=== PATIENT | female | born 1990 | race Caucasian/White ===

== ENCOUNTER 2017-11-22 06:48 | Inpatient (IN) | payer OTHER ==
[2017-11-22] MEDS ORDERED: CARBOPROST 250 MCG INJ IM (12:30)
[2017-11-22] MEDS ORDERED: OXYTOCIN 30 UNITS/LR 500 ML IV (12:30)
[2017-11-22] MEDS ORDERED: METHYLERGONOVINE 0.2 MG INJ IM (12:30)
[2017-11-22] MEDS ORDERED: IBUPROFEN 600 MG TAB PO (12:30)
[2017-11-22] MEDS ORDERED: LIDOCAINE 1% (MPF) 30 ML INJ INJ (12:30)
[2017-11-22] MEDS ORDERED: MISOPROSTOL 200 MCG TAB PR (12:30)
[2017-11-22] MEDS: BUTORPHANOL 2 MG INJ IV (12:59)
[2017-11-22 14:08] LABS: ADD MAN DIFF? NO
[2017-11-22 14:11] LABS: WHITE BLOOD COUNT 11.4 10^3/ul (4.8-10.8)
[2017-11-22 14:11] LABS: BASOPHILS % 0.4 % (0.0-2.0); EOSINOPHILS % 0.4 % (0.0-7.0); HEMATOCRIT 34.7 % (37.0-47.0); HEMOGLOBIN 11.8 g/dl (12.0-16.0); LYMPHOCYTES # 1.8 10^3/ul (0.8-2.9); LYMPHOCYTES % 15.7 % (15.0-51.0); MEAN CORPUSCULAR HEMOGLOBIN 30.4 pg (29.0-33.0); MEAN CORPUSCULAR VOLUME 89.4 fl (82.0-101.0); MEAN PLATELET VOLUME 11.9 fl (7.4-10.4); MONOCYTE # 0.8 10^3/ul (0.3-0.9); MONOCYTES % 6.8 % (0.0-11.0); NEUTROPHIL # 8.7 10^3/ul (1.6-7.5); PLATELET COUNT 166 10^3/UL (140-415); RED BLOOD COUNT 3.88 10^6/ul (4.20-5.40); RED CELL DISTRIBUTION WIDTH 12.5 % (11.5-14.5)
[2017-11-22 14:46] LABS: INR 0.92; PROTIME 12.4 Sec (11.9-14.9)
[2017-11-22] MEDS: LACTATED RINGER'S 1,000 ML IV ×2 (15:28→19:53)
[2017-11-22] MEDS ORDERED: FENTAnyl 2MCG/ML-ROPIV 0.2% 100 ML (15:31)
[2017-11-22 16:47] LABS: RAPID PLASMA REAGIN NONREACTIVE (NR)
[2017-11-22 16:57] LABS: AMPHETAMINE/METHAMPHETAMINE Negative (NEGATIVE); BARBITURATES Negative (NEGATIVE); BENZODIAZEPINES Negative (NEGATIVE); CANNABINOIDS Negative (NEGATIVE); COCAINE Negative (NEGATIVE); OPIATES Negative (NEGATIVE)
[2017-11-22] MEDS: ONDANSETRON 4 MG INJ IV ×2 (17:13→23:24)
[2017-11-22] MEDS ORDERED: NALOXONE (0.4 MG/ML) INJ IV (17:30)
[2017-11-22] MEDS ORDERED: DIPHENHYDRAMINE 50 MG INJ IV (17:30)
[2017-11-22] MEDS: OXYTOCIN 30 UNITS/LR 500 ML IV (20:11)
[2017-11-22] MEDS: FENTAnyl 2MCG/ML-ROPIV 0.2% 100 ML BAG EPI (21:32)
[2017-11-23] MEDS: LACTATED RINGER'S 1,000 ML IV ×2 (01:30→02:35)
[2017-11-23] MEDS: FENTAnyl 2MCG/ML-ROPIV 0.2% 100 ML BAG EPI (04:16)
[2017-11-23] MEDS: OXYTOCIN 30 UNITS/LR 500 ML IV ×3 (06:18→07:16)
[2017-11-23] MEDS ORDERED: LACTATED RINGER'S 500 ML (07:16)
[2017-11-23] MEDS ORDERED: OXYTOCIN 30 UNITS/LR 500 ML IV (07:30)
[2017-11-23] MEDS ORDERED: MISOPROSTOL 200 MCG TAB PR (07:30)
[2017-11-23] MEDS ORDERED: CARBOPROST 250 MCG INJ IM (07:30)
[2017-11-23] MEDS ORDERED: METHYLERGONOVINE 0.2 MG INJ IM (07:30)
[2017-11-23] MEDS: OXYCODONE/ASPIRIN (4.88/325) TAB PO ×4 (07:35→22:21)
[2017-11-23] MEDS: LANOLIN 7 GM TUBE TOP (10:14)
[2017-11-23] MEDS: BENZOCAINE 20% 56 ML SPRAY TOP (10:14)
[2017-11-23] MEDS: IBUPROFEN 600 MG TAB PO ×2 (12:24→18:00)
[2017-11-23] MEDS: LACTATED RINGER'S 1,000 ML ×2 (13:39→19:30)
[2017-11-24] MEDS: IBUPROFEN 600 MG TAB PO ×5 (00:07→23:41)
[2017-11-24] MEDS: LACTATED RINGER'S 1,000 ML (03:30)
[2017-11-24] MEDS: OXYCODONE/ASPIRIN (4.88/325) TAB PO (08:14)
[2017-11-24 10:52] LABS: ADD MAN DIFF? NO
[2017-11-24 10:56] LABS: BASOPHILS % 0.3 % (0.0-2.0); EOSINOPHILS # 0.3 10^3/ul (0.0-0.5); HEMATOCRIT 31.7 % (37.0-47.0); HEMOGLOBIN 10.4 g/dl (12.0-16.0); LYMPHOCYTES # 2.1 10^3/ul (0.8-2.9); LYMPHOCYTES % 16.2 % (15.0-51.0); MEAN CORPUSCULAR HEMOGLOBIN 29.5 pg (29.0-33.0); MEAN CORPUSCULAR HGB CONC 32.8 g/dl (32.0-37.0); MEAN CORPUSCULAR VOLUME 90.1 fl (82.0-101.0); MEAN PLATELET VOLUME 11.8 fl (7.4-10.4); MONOCYTE # 0.8 10^3/ul (0.3-0.9); MONOCYTES % 6.2 % (0.0-11.0); NEUTROPHIL # 9.5 10^3/ul (1.6-7.5); NEUTROPHILS % 74.3 % (39.0-77.0); PLATELET COUNT 154 10^3/UL (140-415); RED BLOOD COUNT 3.52 10^6/ul (4.20-5.40); RED CELL DISTRIBUTION WIDTH 12.4 % (11.5-14.5)
[2017-11-24 10:56] LABS: WHITE BLOOD COUNT 12.8 10^3/ul (4.8-10.8)
[2017-11-25] MEDS: IBUPROFEN 600 MG TAB PO ×2 (05:34→12:27)
[2017-11-25] MEDS: LANOLIN 7 GM TUBE TOP (08:29)
[2017-11-25] MEDS: DIPHTH/TET/ACEL PERTUSS (ADULT) 0.5 ML VIAL IM* (09:00)
== END 2017-11-25 14:30 | disposition home or self-care (01) | DRG 775 ==
LOC: OBT 06:48 → PP1 11-23 08:16 → L-D 06:49 → OBT 12:25 → L-D 12:15
PROVIDERS: Obstetrics & Gynecology
PROC: 10E0XZZ Delivery of Products of Conception, External Approach (ICD-10-PCS; principal; 2017-11-22)
PROC: 0HQ9XZZ Repair Perineum Skin, External Approach (ICD-10-PCS; 2017-11-22)
PROC: 3E033VJ Introduction of Other Hormone into Peripheral Vein, Percutaneous Approach (ICD-10-PCS; 2017-11-22)
DX: O70.0 First degree perineal laceration during delivery (principal); Z37.0 Single live birth; Z3A.39 39 weeks gestation of pregnancy
CPT/HCPCS: 62319; 76815; 76818; 80307; 85025; 85610; 85730; 86592; 86900; 86901; 90715